=== PATIENT | male | born 1940 | race Two or more races ===

== ENCOUNTER 2019-10-21 23:01 | Inpatient (IN) | payer OTHER ==
[~2019-10-21] VITALS: Ht 188 cm; Wt 113.3 kg
[2019-10-21 23:54] LABS: Basophils # (auto) 0.1 10 ^3/uL (0-0.2); Basophils % (auto) 0.6 % (0.0-2.0); Eosinophils # (auto) 0.1 10 ^3/uL (0-0.8); Eosinophils % (auto) 1.3 % (0.0-7.0); Hematocrit 42.7 % (41.0-53.0); Hemoglobin 14.7 g/dL (13.5-17.5); Lymphocytes # (auto) 3.4 10 ^3/uL (0.4-5.4); Lymphocytes % (auto) 38.1 % (10.0-50.0); Mean Corpuscular Hemoglobin 32.4 pg (28.0-32.0); Mean Corpuscular Hgb Conc. 34.4 g/dL (32.0-36.0); Mean Corpuscular Volume 94.1 fL (80.0-100.0); Monocytes # (auto) 0.7 10 ^3/uL (0-1.3); Monocytes % (auto) 7.5 % (0.0-12.0); Neutrophils # (auto) 4.7 10 ^3/uL (1.6-8.6); Neutrophils % (auto) 52.5 % (37.0-80.0); Platelet Count (auto) 142 10^3/uL (140-450); Red Blood Cells 4.54 10^6/uL (4.5-5.90); Red Cell Distribution Width 14.8 % (11.8-14.3)
[2019-10-22 00:20] LABS: Alanine Aminotransferase 66 U/L (16-61); Amylase 40 U/L (25-115); Anion Gap 10 (5-15); Aspartate Aminotransferase 44 U/L (15-37); Blood Urea Nitrogen 23 mg/dL (7-18); Calcium 8.8 mg/dL (8.5-10.1); Carbon Dioxide 20 mmol/L (21-32); Chloride 106 mmol/L (98-107); GFR African American 39 mL/min; GFR Non-African American 33 mL/min; Glucose 111 mg/dL (74-106); Lipase 169 U/L (73-393); Potassium 4.1 mmol/L (3.5-5.1); Sodium 136 mmol/L (136-145)
[2019-10-22 00:22] LABS: Alkaline Phosphatase 125 U/L (45-117); Bilirubin, Total 0.6 mg/dL (0.2-1.0); Total Protein 7.7 g/dL (6.4-8.2)
[2019-10-22] MEDS ORDERED: methylPREDNISolone SOD SUCC 125 MG/2 ML VL IV ONE (00:45)
[2019-10-22 01:13] LABS: INR 0.99 (0.9-1.15); Partial Thromboplastin Time 26.6 sec (23.0-31.2)
[2019-10-22] MEDS ORDERED: OMEP-335 PO (02:59)
[2019-10-22] MEDS ORDERED: CLON0.5T3 PO (02:59)
[2019-10-22] MEDS ORDERED: TAM04C PO (02:59)
[2019-10-22] MEDS ORDERED: MIRT30TA PO (02:59)
[2019-10-22] MEDS ORDERED: GABA100C9 PO (02:59)
[2019-10-22] MEDS ORDERED: VENL-194 PO (02:59)
[2019-10-22] MEDS ORDERED: IOHEXOL 350 MG/ML 100ML IJ ONE (03:01)
[2019-10-22] MEDS ORDERED: ACETAMINOPHEN 325 MG TAB PO PRN (05:30)
[2019-10-22] MEDS ORDERED: MORPHINE SULF INJ 2 MG/ML SYRINGE 1ML IV PRN (05:30)
[2019-10-22] MEDS ORDERED: TEMAZEPAM 15 MG CAP PO PRN (05:30)
[2019-10-22] MEDS ORDERED: ONDANSETRON HCL 4 MG/2 ML VIAL IV PRN (05:30)
[2019-10-22] MEDS ORDERED: NITROGLYCERIN 0.4 MG SL TAB SL PRN (05:30)
[2019-10-22] MEDS ORDERED: SODIUM CHLORIDE 0.9% 500 ML IV ONE (05:30)
[2019-10-22] MEDS ORDERED: BUDE1AER4 IN (06:06)
[2019-10-22] MEDS ORDERED: QUET300T14 PO (06:06)
[2019-10-22] MEDS: PANTOPRAZOLE 40 MG TAB PO SCH (10:56)
[2019-10-22 11:03] LABS: Urine Bacteria NONE SEEN /hpf (None Seen); Urine Blood Negative /uL (Negative); Urine Hyaline Cast FEW /lpf (0 - 2); Urine Mucus FEW (None Seen); Urine Specific Gravity 1.013 (1.001-1.035); Urine Sperm PRESENT /hpf (None Seen); Urine WBC <1 /hpf (0 - 3)
[2019-10-22 13:00] VITALS: BP 132/91
[2019-10-22] MEDS ORDERED: amLODIPine BESYLATE 5 MG TAB PO ONE (13:00)
--- NOTE | 2019-10-22 13:10 | NUR ---
Telemetry admit from ER ROBERTA COE admitted to Telemetry unit after SBAR received. Patient oriented to primary RN, unit, room, bed, and unit policies regarding patient care and visiting hours. Patient now on continuous telemetry monitoring. Patient placed on bedside oxygen, weighed by bedscale and encouraged to call if they need something. All questions and concerns addressed, patient verbalized understanding.
[2019-10-22] MEDS: GABAPENTIN 300 MG CAP PO SCH ×2 (14:00→22:00)
[2019-10-22 15:42] LABS: Anion Gap 9 (5-15); Blood Urea Nitrogen 22 mg/dL (7-18); Calcium 8.7 mg/dL (8.5-10.1); Carbon Dioxide 20 mmol/L (21-32); Chloride 110 mmol/L (98-107); Glucose 123 mg/dL (74-106); Potassium 4.1 mmol/L (3.5-5.1); Sodium 139 mmol/L (136-145)
[2019-10-22 15:44] LABS: BUN/Creatinine Ratio 13.8; GFR African American 54 mL/min; GFR Non-African American 45 mL/min
--- NOTE | 2019-10-22 15:48 | NUR ---
Assessment Patient is a 79-year-old male who was unable to answer questions appropriately. Assessment was completed with patient Libra . Per Libra prior to admission patient lived home with her and functioned with assistance. Per Libra patient does not have any medical equipment now. Per Libra patient will return to his prior living arrangements post discharge and she will transport patient home. Advised Libra there is a social service consult for home health safety evaluation and a front wheel walker. Informed Libra clinical information will be faxed to [facility] and [facility] for the walker. Informed Libra she has the right to participate in all discharge planning. Libra verbalized understanding discharge plan. Faxed clinical information to [facility] and [facility] requesting for walker to be deliver to [facility]. Jacob Sahu with [facility] patient has been accepted and service to start within 24-48hrs upon d/c day. Informed Patient alexa Smyth. Addendum: 10/22/19 at 1550 by JESSIE GRESHAM Amended: Links added.
--- NOTE | 2019-10-22 15:48 | NUR ---
Phone Call from Libra Spoke with Libra on the phone, she would like an update on the patient once the doctor rounds.
[2019-10-22 17:29] VITALS: BP 130/76
[2019-10-22] MEDS ORDERED: TAMSULOSIN HYDROCHLORIDE 0.4 MG CAP PO SCH (18:00)
[2019-10-22 22:00] VITALS: BP 106/77
[2019-10-22] MEDS ORDERED: MIRTAZAPINE 30 MG TAB PO SCH (22:00)
[2019-10-22] MEDS ORDERED: PATIENTS OWN MEDICATION (Omeprazole 20 MG) PO SCH (22:00)
[2019-10-22] MEDS: VENLAFAXINE HCL 37.5MG TABLET PO SCH (22:00)
[2019-10-22] MEDS ORDERED: LORazepam 2MG/ML-1ML VIAL IV PRN (23:30)
--- NOTE | 2019-10-23 00:42 | NUR ---
Restraints Initiated Woke the patient to give medications and he awoke very confused, agitated. I reoriented him, explained he was in the hospital and why but he seemed not to understand what I was saying. He didn't seem to understand what was happening, stating continuously "I won't go". Already unsteady on his feet, the patient would not get back in bed, wanting to walk out into the hallway. Called for assistance from security and they helped hold him down while I applied soft limb restraints. Tried to use mittens initially but the patient proved to be too strong for mittens. He nearly pulled free from the soft limb restraints as well but eventually tired out. Called and received an order for Ativan 2mg IVP. The medication did seem to help as the patient was pretty calm at 0045hrs. The patient was placed in a sitter room for observation. Continuing to reinforce teaching and reorient the patient. Will continue to monitor.
[2019-10-23 05:23] VITALS: BP 148/89
--- NOTE | 2019-10-23 05:43 | NUR ---
Restraints Continued The patient still requires the use of restraints. He has not slept, continues to try to remove the restraints and get out of bed. Despite all the pulling, no skin breakdown noticed. He is still uncooperative refusing medications and other interventions. We were able to get him to drink water, use the urinal, no BM noted. Will continue to monitor.
[2019-10-23 06:55] LABS: Basophils # (auto) 0 10 ^3/uL (0-0.2); Basophils % (auto) 0.3 % (0.0-2.0); Eosinophils # (auto) 0 10 ^3/uL (0-0.8); Eosinophils % (auto) 0.1 % (0.0-7.0); Hematocrit 40.9 % (41.0-53.0); Hemoglobin 13.6 g/dL (13.5-17.5); Lymphocytes # (auto) 2.7 10 ^3/uL (0.4-5.4); Lymphocytes % (auto) 22.9 % (10.0-50.0); Mean Corpuscular Hemoglobin 31.2 pg (28.0-32.0); Mean Corpuscular Hgb Conc. 33.2 g/dL (32.0-36.0); Mean Corpuscular Volume 94.1 fL (80.0-100.0); Monocytes # (auto) 0.9 10 ^3/uL (0-1.3); Monocytes % (auto) 7.4 % (0.0-12.0); Neutrophils # (auto) 8.3 10 ^3/uL (1.6-8.6); Neutrophils % (auto) 69.3 % (37.0-80.0); Nucleated Red Blood Cells % 0.1 %; Platelet Count (auto) 160 10^3/uL (140-450); Red Blood Cells 4.35 10^6/uL (4.5-5.90); Red Cell Distribution Width 14.6 % (11.8-14.3)
[2019-10-23 07:11] LABS: Potassium 3.4 mmol/L (3.5-5.1)
[2019-10-23 07:18] LABS: BUN/Creatinine Ratio 18.2; Calcium 9.2 mg/dL (8.5-10.1); Magnesium 2.3 mg/dL (1.6-2.6)
--- NOTE | 2019-10-23 08:00 | NUR ---
OPENING SHIFT NOTE: PATIENT RESTING IN BED AWAKE APPEARS RESTLESS SHIFTING AROUND IN BED RESPIRATORY RATE 24. SOFT RESTRAINTS APPLIED TO BILATERAL WRISTS, DISTAL CIRCULATION ASSESSED AND WNL. PATIENT A/OX1 TO SELF, UNABLE TO GIVE , PLACE, OR FORMULATE COMPLETE SENTENCES. THIS RN ATTEMPTED TO RE-ORIENT PATIENT, AND UPDATE ON PLAN OF CARE, ENCOURAGED PATIENT TO RELAX AND REST, PATIENT WISHED FOR THE LIGHTS TO REMAIN ON IN THE ROOM. SITTER AT BEDSIDE, CALL LIGHT WITHIN REACH, WILL CONTINUE TO MONITOR.
[2019-10-23] MEDS: GABAPENTIN 300 MG CAP PO SCH ×2 (08:19→14:00)
[2019-10-23 08:55] VITALS: BP 138/83
--- NOTE | 2019-10-23 09:18 | NUR ---
D/C Planning Per Harper with [facility] walker was deliver on Sunday10/22/19.
[2019-10-23] MEDS ORDERED: amLODIPine BESYLATE 5 MG TAB PO SCH (10:00)
[2019-10-23] MEDS: PANTOPRAZOLE 40 MG TAB PO SCH (10:00)
[2019-10-23] MEDS: VENLAFAXINE HCL 37.5MG TABLET PO SCH (10:00)
--- NOTE | 2019-10-23 10:10 | NUR ---
PT IS CONFUSED AND INS SOFT RESTRAINTS. PATIENT IS NOT SAFE TO TRANSFER OUT OF BED TODAY.
--- NOTE | 2019-10-23 12:15 | NUR ---
RESTRAINTS REMOVED. PATIENT SLEEPING RESTRAINTS REMOVED AT THIS TIME. SITTER AT BEDSIDE.
--- NOTE | 2019-10-23 12:15 | NUR ---
REMOVAL OF RESTRAINTS UNSUCCESSFUL: UNABLE TO REMOVE RESTRAINTS, PATIENT AWOKEN, AND BEGAN TO TRY AND GET OUT OF BED, KICKING LEGS STATING INAPPROPRIATE CONFUSED WORDS.
--- NOTE | 2019-10-23 13:45 | NUR ---
RESTRAINTS: PATIENT BACK AWAKE, ATTEMPTING TO GET OUT OF BED, SOFT WRIST RESTRAINTS REAPPLIED, PATIENT RESISTIVE TO CARE, AND HYGIENE/PERSONAL CARE. WILL CONTINUE TO MONITOR. Addendum: 10/23/19 at 1614 by KILEY JOSEPH RN RN RESTRAINTS RE-ENFORCED AND RE-ASSESSED, MISTAKEN ENTRY ON RE-APPLIED.
[2019-10-23 14:13] VITALS: BP 138/83
--- NOTE | 2019-10-23 14:45 | NUR ---
D/C RESTRAINTS REMOVED: PATIENT UPDATED ON PLAN OF CARE, APPEARS MORE COMPLIANT KNOWING HE WILL BE GOING HOME AROUND 1500. PATIENT ABLE TO SAFELY ASSIST GETTING DRESSED, AND IS LAUGHING AND MORE CHEERFUL. TELE REMOVED AND RETURNED TO CARDIO UNIT. PATIENT SAFE WITH SITTER AT BEDSIDE WITHOUT RESTRAINTS UNTIL RIDE HOME ARRIVES. WILL CONTINUE TO MONITOR.
--- NOTE | 2019-10-23 15:15 | NUR ---
DISCHARGE: PATIENT GIVEN ALL EDUCATION MATERIALS, SHANTE INFORMED WELL. PATIENT TELE REMOVED AND RETURNED TO CARDIO UNIT, IV REMOVED MANUAL PRESSURE APPLIED. PATIENT TAKEN TO PRIVATE AUTO WITH ALL BELONGINGS AND NEW FWW. PATIENT RESPIRATIONS EVEN AND UNLABORED. NO SIGNS OF DISTRESS NOTED.
== END 2019-10-23 15:10 | disposition home health service (06) | DRG 315 ==
LOC: ER 23:01 → EDBD 23:01 → TELE 23:02 → TELE-WESTW 10-22 13:26
PROVIDERS: ADMIT Nurse Practitioner; ATTEND Hospitalist
DX: I95.9 Hypotension, unspecified (principal); N17.9 Acute kidney failure, unspecified; J44.1 Chronic obstructive pulmonary disease with (acute) exacerbation; J45.901 Unspecified asthma with (acute) exacerbation; F05 Delirium due to known physiological condition; E86.0 Dehydration; R55 Syncope and collapse; F03.90 Unspecified dementia, unspecified severity, without behavioral disturbance, psychotic disturbance, mood disturbance, and anxiety; N18.9 Chronic kidney disease, unspecified; Z03.818 Encounter for observation for suspected exposure to other biological agents ruled out; Z88.0 Allergy status to penicillin
CPT/HCPCS: 36415; 36600; 70450; 71045; 78582; 80048; 80053; 81001; 82150; 82805; 83690; 83735; 83880; 84484; 85025; 85379; 85610; 85730; 87426; 93005; 93306; 96361; 96374; A4565; G0378